=== PATIENT | male | born 1940 | race Caucasian/White ===

== ENCOUNTER 2016-09-17 18:43 | Emergency (ER) | payer OTHER ==
[2016-09-17 18:49] VITALS: BP 100/62; BMI 28.9
--- NOTE | 2016-09-17 19:21 | DR.GENAD ---
HPI - PCP Primary Care Physician: no one local - HPI Comment HPI Comment: PATIENT FELL AND SUSTAIN LACERATION TO RIGHT ARM. HAD PREVIOUS HEALING LACERATION IN THE SANME AREA ON THE SAME ARM. BLEEDING FROM WOUND. - Complaint/Symptoms Chief Complaint Doctors Comments: FELL, LACERATION RIGHT ARM. Chief Complaint:: patient is from [facility] [place]. he was down here visiting his daughter and fell off the ladder and hit his upper arm - Nurses notes reviewed Nurses Notes Review: Yes - Source History Provided: Patient - Mode of Arrival Mode of Arrival: Ambulatory - Timing Onset of Chief Complaint: 09/17/16 Came on: Suddenly - Duration Duration: Constant Duration: Hours - Severity Severity: Moderate PMH - PMH Past Medical History: Yes Past Medical History: Arthritis, Coronary Artery Disease, Dementia, Depression Past Surgical History: Yes Surgical History: CABG/Valve Surgery, Cholecystectomy, Ortho Surgery, Other - Family History History of Family Medical Conditions: Yes Family Medical History: Diabetes Mellitus, Heart Failure, Hypertension - Social History Does patient currently use any type of tobacco product: Yes Have you used tobacco products in the last 12 months: Yes Type of Tobacco Use: None Does any household member use tobacco: No Alcohol Use: None Do you use any recreational Drugs:: No Lives With: Family Lives Where: Home - infectious screening In the last 2 months have you had wt loss of >10#?: NO Have you had fever, night sweats or hemotysis?: No Have you traveled outside the country in the last 6 months?: No Isolation: Standard ROS - Review of Systems Constitutional: No Symptoms Reported Eyes: No Symptoms Reported ENTM: No Symptoms Reported Respiratoy: Short of Breath (CHRONIC.). negative: Productive Cough, Wheezing, Hemoptysis Cardiovascular: No Symptoms Reported. negative: Chest Pain Gastrointestinal/Abdominal: No Symptoms Reported. negative: Abdominal Pain, Diarrhea, Nausea, Vomiting Genitourinary: No Symptoms Reported. negative: Dysuria, Hematuria Neurological: negative: Headache, Weakness, Dizziness Musculoskeletal: Muscle Pain Integumentary: Wound (LACERATION RIGHT ARM 11CM), Bruises Hematologic/Lymphatic: Easy Bruising Endocrine: No Symptoms Reported All Other Systems: Reviewed and Negative PE - Vital Signs Vitals: Temperature 98.6 F Pulse Rate 62 Respiratory Rate 16 Blood Pressure [Left Thigh] 93/53 Blood Pressure [Left Arm] 87/30 Blood Pressure [Right Arm] 55/27 Blood Pressure 100/62 O2 Sat by Pulse Oximetry 100 - General Limitations: No Limitations General Appearance: Alert - Head Head Exam: Normal Inspection - Eyes Eye exam: Normal Appearance - ENT ENT Exam: Normal External Ear Exam External Ear Exam: Normal External Inspection TM/Canal Exam: Bilateral Normal Nose Exam: Normal Nose Exam Mouth Exam: Normal Inspection Throat Exam: Normal Inspection - Neck Neck Exam: Normal Inspection - Chest Chest Inspection: Normal Inspection - Respiratory Respiratory Exam: Normal Lung Sounds Bilat Respiratory Exam: Bilateral Clear to Auscultation - Cardiovascular Cardiovascular Exam: Regular Rate, Normal Rhythm, Normal Heart Sounds - Abdominal Exam Abdominal Exam: Normal Bowel Sounds, Soft. negative: Tenderness - Extremities Extremities Exam: Normal Inspection - Back Back Exam: Normal Inspection - Neurologic Neurological Exam: Alert, Oriented X3 - Psychiatric Psychiatric Exam: Normal Affect, Normal Mood - Skin Skin Exam: Normal Color, Other (LAC RT ARM) MDM - Additional Information Additional Information Obtained From: Family - Differential Diagnosis Differential Diagnosis: LACERATION RIGHT ARM Course - Treatment Treatment: SEE ORDERS - Education/Counseling Education/Counseling: Patient, Education Educated On: Treatment, Diagnosis, Needs for Follow Up Procedures - Laceration/Wound Repair Right Arm Wound Length (cm): 11 Wound Explored: clean Betadine Prep?: Yes Anesthesia: 1% Lidocaine Volume Anesthetic (ccs): 5 Wound Debrided: minimal Wound Repaired With: sutures Suture Size/Type: 4:0, Ethilion Number of Sutures: 20 Layer Closure?: Yes Deep Layer Suture Size/Type: 3:0 Number Deep Layer Sutures: 4 Sterile Dressing Applied?: Yes Splint Applied?: No Sling Applied?: No - Diagnosis Discharge Problem: Laceration of right arm with complication Qualifiers: Encounter type: initial encounter Qualified Code(s): S41.111A - Laceration without foreign body of right upper arm, initial encounter - Discharge Plan Disposition: HOME, SELF-CARE Condition: Stable Prescriptions: Gentamicin Topical Crm [GENTAMICIN TOPICAL CRM 0.1%] 1 applic TOP BID #15 gm Sulfamethoxazole-Trimethoprim [BACTRIM DS TAB 800/160 MG *] 1 tab PO BID #20 tab - Follow ups/Referrals Follow ups/Referrals: FLAKITO MÁRQUEZ [STAFF PHYSICIAN] - 09/21/16 NFD,Sherri [Primary Care Provider] - 09/21/16 - Instructions Instructions: Laceration Care, Adult Additional Instructions: RETURN TO ED IF WORSE.
[2016-09-17] MEDS ORDERED: BETADINE SOLN TOP ONE (19:30)
[2016-09-17] MEDS ORDERED: XYLOCAINE 2 % (PLAIN) IJ ONE (19:30)
[2016-09-17] MEDS ORDERED: XYLOCAINE 2 % (PLAIN) ONE (19:33)
[2016-09-17] MEDS ORDERED: BACTRIM DS TAB PO ONE ×2 (20:50→20:52)
== END 2016-09-17 21:03 | disposition home or self-care (01) ==
LOC: ER 18:54
PROC: 0XQ80ZZ Repair Right Upper Arm, Open Approach (ICD-10-PCS; principal; 2016-09-17)
DX: S41.111A Laceration without foreign body of right upper arm, initial encounter (principal); W11.XXXA Fall on and from ladder, initial encounter; Y92.9 Unspecified place or not applicable
CPT/HCPCS: 12004; 99282; J2001